=== PATIENT | male | born 1980 | race Caucasian/White ===

== ENCOUNTER 2020-10-18 09:17 | Emergency (ER) | payer OTHER, SELFPAY ==
[2020-10-18 09:26] VITALS: BP 154/106; PULSE 64; RESP 15; TEMP 36.8; O2SAT 99; BMI 25.0
--- NOTE | 2020-10-18 09:31 | W.ED.UPPEXIN ---
HPI - Extremity Injury (Upper) General: Chief Complaint: Extremity Injury, Upper Stated Complaint: Left Hand [facility], [facility] Time Seen by Provider: 10/18/20 09:19 Source: patient Mode of arrival: ambulatory Limitations: no limitations History of Present Illness: HPI narrative: Patient is a nice 40-year-old male who presents to the ED today after being referred here from the [facility] for splinting of a left hand fracture. Patient tells me earlier this morning he was using a sledgehammer and accidentally struck the dorsal aspect of his left hand. XRs of the hand were obtained at the [facility] and showed a comminuted fracture with displacement involving the distal aspect of the second metacarpal. They apparently did not have appropriate splinting material so was referred to the ED. Patient tells me they are actively working on a referral to hand surgery/orthopedics for follow-up. complaint: injury to: left and hand Onset (ago): hour(s) Other Extremity Injury: Left: hand Other injuries: none Handedness: right Place: home Severity: moderate Relieving factors: immobilization Exacerbating factors: movement of extremity Context: direct blow Associated symptoms: Reports no associated symptoms; Denies weakness in extremities Treatments prior to arrival: cold therapy Review of Systems Musc: Reports: extremity pain (L hand) and extremity swelling (L hand); Denies: limited range of motion Neuro: Denies: numbness in extremities, weakness in extremities or sensory changes Physical Exam Const: COMMON NORMALS: no acute distress, average body habitus, patient oriented x3, no limitations, healthy appearing, alert and well nourished Extremity: GENERAL: Yes normal exam except as noted OTHER: pt has swelling throughout dorsum of L hand; maximum tenderness along 2nd MCP joint; he maintains good ROM here with minimal pain; NV intact Neuro: COMMON NORMALS: patient oriented x3, moves all extremities, no focal motor deficits and no sensory deficits noted SENSORIUM/ORIENTATION: Yes alert Skin: COMMON NORMALS: no rashes or lesions noted GENERAL SKIN EXAM: no rashes or lesions noted TRAUMA: no lacerations or abrasions Course Vital Signs: Vital signs: Vital Signs Temperature 98.2 F 10/18/20 09:26 Pulse Rate 64 10/18/20 09:26 Respiratory Rate 15 10/18/20 09:26 Blood Pressure 154/106 06/09/21 09:26 Pulse Oximetry 99 10/18/20 09:26 MDM - Extremity Injury (Upper) MDM Narrative: Medical decision making narrative: [facility] with [facility] 3 views of his left hand XRs as well as an official radiology over read report. XR imaging was reviewed by myself (these were also scanned into patient's file). Again report showin) Comminuted fracture with displacement involving the distal aspect of the second metacarpal of the left hand 2) very mild degenerative changes Patient will be placed in a radial gutter splint. He states the [facility] is actively working on an orthopedic/hand surgery referral. Discharge Plan Discharge Patient Disposition: Home Clinical Impression: Closed fracture of second metacarpal bone of left hand Qualifiers: Encounter type: initial encounter Metacarpal location: other portion of metacarpal Fracture alignment: displaced Qualified Code(s): S62.391A - Other fracture of second metacarpal bone, left hand, initial encounter for closed fracture Condition: Stable Discharge Orders: Discharge ED (Routine); Ordered 10/18/20 Ordered By: Lupe Hope Activity Restrictions/Additional Instructions: Please follow up with the hand surgery/orthopedics referral you receive from the [place]. Continue to ice and elevate extremity to help with swelling. You may continue to take Tylenol and/or Ibuprofen for discomfort. Coding Level of Care Code ED Supervisor [employer] for Елена Fwd Exam Expanded Problem Focused
== END 2020-10-18 10:03 | disposition home or self-care (01) ==
PROVIDERS: Emergency Provider Physician Assistant
DX: S62.391A Other fracture of second metacarpal bone, left hand, initial encounter for closed fracture (principal); W22.8XXA Striking against or struck by other objects, initial encounter
CPT/HCPCS: 29125; 99283